=== PATIENT | male | born 1935 | race Caucasian/White ===

== ENCOUNTER → 2016-09-04 | Outpatient (CLI) | payer MEDICARE, BC ==
[~2016-09-04] MED LIST: ASPIRIN EC81 M1 PO; ASPIRIN81 MG PO; BETAPACE80 MG PO; COUMADIN7.5 MG PO; LEVBID; LEVBID PO; PEPCID PO; ST. JOSEPH ASPI81 M3 PO; ZESTRIL10 M1 PO; ZESTRIL10 M2 PO; ZOCOR PO; ZOCOR20 MG PO
--- NOTE | ~2016-09-04 | EKG ---
PATIENT: SKYLAR SIMPSON UNIT #: [id number] Ventricular Rate: 62 BPM Atrial Rate: 62 BPM P-R Interval: 128 ms QRS Duration: 100 ms Q-T Interval: 412 ms QTC Calculation(Bezet): 418 ms Calculated R [place]: -52 degrees Calculated T [place]: -30 degrees Diagnosis Line: AV sequential or dual chamber electronic pacemaker Diagnosis Line: Diagnosis Line: Confirmed by LORI JONES MD ([id number]) on 09/05/2016 Diagnosis Line: 4:44:18 PM INTERPRETING MD: ROBERT GIBBS
[2016-09-04 13:22] LABS: ALBUMIN SERUM 3.6 g/dL (3.5-5.0); ALKALINE PHOSPHATASE 64 U/L (32-92); ALT (SGPT) 16 U/L (10-40); AST (SGOT) 19 U/L (10-42); BILIRUBIN,TOTAL 0.6 mg/dL (0.2-2.0); BLOOD UREA NITROGEN 18 mg/dL (9-23); CALCIUM SERUM 8.5 mg/dL (8.4-10.2); CARBON DIOXIDE 28 mmol/L (22-31); CHLORIDE 102 mmol/L (100-111); GLOM FILT RATE Estimated ABOVE60 mL/min (>60); GLUCOSE FASTING 117 mg/dL (70-110); POTASSIUM 4.8 mmol/L (3.5-5.1); PROTEIN TOTAL SERUM 6.5 g/dL (6.0-8.3); SODIUM 137 mmol/L (135-145)
== END | disposition home or self-care (01) ==
LOC: CAMB 10:34
PROVIDERS: Surgery
DX: Z01.818 Encounter for other preprocedural examination (principal); R10.11 Right upper quadrant pain
CPT/HCPCS: 36415; 80053; 93005

== ENCOUNTER → 2016-09-11 | Day surgery (SDC) | payer MEDICARE, BC ==
--- NOTE | ~2016-09-11 | OR ---
Unit #: [id number] #: [id number] Patient: SKYLAR SIMPSON SR [id number] [address] [place], [place] [address] [id number] MR#: [id number] NAME: SKYLAR SIMPSON SR ROOM: Date of Procedure: 09/11/2016 Admission Date: 09/11/2016 Surgeon: Pop Atkins Jr., M.D. : 1935 Attending Physician: Pop Atkins Jr., M.D. OPERATIVE REPORT INDICATIONS FOR PROCEDURE The patient is a 81-year-old white male, who has been having intermittent biliary colic like symptoms with right upper quadrant pain. He has had some associated nausea at times. He has had a workup recently and was noted to have evidence of no obvious stones on ultrasound, but on CCK HIDA scan, he only had a 9% contraction of his gallbladder with some reproduction of his symptoms. It was felt he has acalculous or possibly calculous cholecystitis. He was brought in this time for laparoscopic cholecystectomy at his request. PREOPERATIVE DIAGNOSES Chronic cholecystitis with possible cholelithiasis. POSTOPERATIVE DIAGNOSES Chronic cholecystitis with possible cholelithiasis. ANESTHESIA General with endotracheal intubation with 0.5% Marcaine with epinephrine locally. PROCEDURE PERFORMED Laparoscopic cholecystectomy. DESCRIPTION OF PROCEDURE The patient was positioned in supine position, after being anesthetized and intubated, was prepped and draped in routine fashion for laparoscopic cholecystectomy. A small supraumbilical incision was made approximately a cm in length. This was carried down to the fascia. The fascia was lifted with a towel clip along with the umbilicus and a Veress needle was introduced in the abdomen. The abdomen was then inflated with CO2 gas. A 5-mm port was introduced in the abdomen followed by the camera. There was no evidence of any injury related to introduction of the port of the Veress needle. Brief intra-abdominal exploration was carried out. The patient was noted to have some incidental findings of bilateral inguinal hernias, which were small, but otherwise except for a slightly fatty liver, chronically inflamed gallbladder, there were no other specific abnormalities on visualization. Two 5-mm ports were placed laterally and an 11-mm port just to the right of the upper midline. The gallbladder was lifted. Dissection was carried out in the triangle of [place]ot. Cystic duct was isolated, hemoclipped x4, and divided approximately a cm from its junction with the common duct. The common duct appeared normal. Cystic artery was identified, hemoclipped x3, and divided. There was additional Unit #: [id number] #: [id number] Patient: SKYLAR SIMPSON SR posterior branch, which was hemoclipped and divided. The gallbladder was then removed from its bed with the hook cautery using a current of 20 and after it was released, it was removed through the larger port site along with the grasping clamp at the port. The port was placed. Subhepatic space checked. There was no evidence of any bleeding from the gallbladder bed. The clips on cystic duct and cystic artery were intact with no evidence of any leak or bleeding. After a small amount of blood was removed with a sponge packed in the abdomen and brought directly back out. Sponge count was correct x3. CO2 was expressed from the abdomen following closure of the fascia of the larger port site with neoClose technique. Additional stitch was placed in the fascia using a [id number] type stitch. This was a 0 Vicryl suture. After the CO2 was expressed from the abdomen, the ports were removed. There was no evidence of any bleeding from the port sites. The port sites were injected with 0.5% Marcaine with epinephrine locally, irrigated after hemostasis achieved with Bovie cautery. Skin edges were approximated with stainless-steel skin clips, skin stapling device. Sterile dressings were applied externally. Estimated blood loss less than 20 mL. The patient received less than 1000 mL of crystalloid solution during the procedure. Sponges and instrument counts were correct x3. No drains were used. No complications. The patient was taken to the recovery room in stable vital signs in satisfactory condition. Dictated by... Pop Atkins Jr., M.D. JMB/[place]field TD: 09/12/2016 02:03 JOB #: [id number] OPERATIVE REPORT X Pop Atkins MD X PROCEDURE OPERATIVE NOTE
[2016-09-11 08:33] LABS: INR 1.1; PROTHROMBIN TIME (PATIENT) 11.4 SECONDS (9.6-11.5)
== END | disposition home or self-care (01) ==
LOC: CSUR 07:12
PROVIDERS: Surgery
DX: K81.1 Chronic cholecystitis (principal); I10 Essential (primary) hypertension; I48.91 Unspecified atrial fibrillation; I25.10 Atherosclerotic heart disease of native coronary artery without angina pectoris; E78.5 Hyperlipidemia, unspecified; K21.9 Gastro-esophageal reflux disease without esophagitis; K59.00 Constipation, unspecified; M19.90 Unspecified osteoarthritis, unspecified site; Z88.0 Allergy status to penicillin; Z88.1 Allergy status to other antibiotic agents; Z91.040 Latex allergy status; Z79.01 Long term (current) use of anticoagulants; Z79.82 Long term (current) use of aspirin; Z79.899 Other long term (current) drug therapy; Z90.5 Acquired absence of kidney; Z95.0 Presence of cardiac pacemaker; Z98.890 Other specified postprocedural states
CPT/HCPCS: 85610; 88304; J0131; J0330; J1335; J1650; J1885; J2250; J2405; J3010